=== PATIENT | female | born 1965 | race Caucasian/White ===

== ENCOUNTER 2018-10-04 23:04 | Emergency (ER) | payer OTHER ==
[~2018-10-04] VITALS: Ht 162.6 cm; Wt 88.0 kg
[2018-10-05] MEDS ORDERED: ONDANSETRON 4MG ODT PO ONE (00:15)
[2018-10-05 01:02] LABS: CHLORIDE 103 mEq/L (98-107)
[2018-10-05 01:05] LABS: HEMOGLOBIN 12.1 g/dL (12.0-16.0); MEAN CORPUSCULAR HEMOGLOBIN 29.8 pg (28.0-32.0); MEAN CORPUSCULAR VOLUME 88.2 fL (81.0-99.0); PLATELET 274 x1000/uL (130-400); RED BLOOD CELL COUNT 4.08 mill/uL (4.2-5.4); RED CELL DISTRIBUTION WIDTH 13.1 % (11.6-14.6)
[2018-10-05 03:06] VITALS: BP 114/68
== END 2018-10-05 03:30 | disposition home or self-care (01) ==
LOC: ER 23:04
DX: K80.20 Calculus of gallbladder without cholecystitis without obstruction (principal); I10 Essential (primary) hypertension
CPT/HCPCS: 36415; 76705; 80053; 85027; 99284; Q0162